=== PATIENT | male | born 1975 | race Caucasian/White ===

== ENCOUNTER 2019-10-27 18:12 | Emergency (ER) | payer OTHER ==
[~2019-10-27] VITALS: Ht 271.8 cm; Wt 81.7 kg
[2019-10-27] MEDS ORDERED: AMOCLA875 PO (19:39)
== END 2019-10-27 20:16 | disposition home or self-care (01) ==
LOC: ER 18:12
DX: S01.312A Laceration without foreign body of left ear, initial encounter (principal); W22.8XXA Striking against or struck by other objects, initial encounter
CPT/HCPCS: 99282